=== PATIENT | female | born 1975 | race Hispanic/Latino ===

== ENCOUNTER 2018-04-25 13:34 | Outpatient (CLI) | payer OTHER ==
--- NOTE | 2018-04-25 15:59 | MRI ---
MRI BRAIN WITHOUT CONTRAST: HISTORY: Right-sided paresthesias and numbness. Concern for stroke. FINDINGS: No restricted diffusion is seen. No evidence of infarct, hemorrhage, midline shift, or abnormal extr aaxial fluid collections is seen. The ventricular size is normal and the basilar cisterns patent. T here is mild mucosal disease in the paranasal sinuses. No tonsillar herniation is seen. A partially empty sella is present. IMPRESSION: No evidence of acute intracranial process. POS: [facility]
== END 2018-04-25 13:35 | disposition home or self-care (01) ==
LOC: SCSMRI 13:34
PROVIDERS: ATTEND Neurological Surgery
DX: R20.2 Paresthesia of skin (principal); R20.0 Anesthesia of skin
CPT/HCPCS: 70551

== ENCOUNTER 2018-05-27 09:41 | Outpatient (CLI) | payer OTHER ==
--- NOTE | 2018-05-27 11:15 | RAD ---
TWO VIEWS LUMBOSACRAL SPINE: Comparison: None. History: Back and right leg pain after back surgery in February 2018. FINDINGS: Two views of the lumbosacral spine shows normal height and alignment of the vertebral bodies and inte rvertebral discs without fracture or subluxation. Small osteophytes are seen throughout the lumbar sp ine. IMPRESSION: Mild degenerative changes of the lumbar spine without acute osseous abnormality. POS: [facility]
--- NOTE | 2018-05-27 11:22 | RAD ---
THREE VIEWS CERVICAL SPINE: Comparison: 04-22-18 History: Neck pain since anterior fusion in February 2018. FINDINGS: Three views of the cervical spine shows the patient to be status post anterior fusion of C5 and C6 wi th a plate and screw, and disc spacer within good position within the disc space. No prevertebral sof t tissue swelling is seen. Vertebral bodies demonstrate normal alignment without subluxation. IMPRESSION: Post-surgical changes of the cervical spine without evidence of complication. POS: [facility]
== END 2018-05-27 09:42 | disposition home or self-care (01) ==
LOC: SCSRAD 09:41
PROVIDERS: ATTEND Neurological Surgery
DX: M50.222 Other cervical disc displacement at C5-C6 level (principal); M47.816 Spondylosis without myelopathy or radiculopathy, lumbar region; Z98.1 Arthrodesis status
CPT/HCPCS: 72040; 72100

== ENCOUNTER 2018-09-15 12:24 | Outpatient (CLI) | payer OTHER ==
--- NOTE | 2018-09-15 16:16 | MRI ---
NONCONTRAST MRI LUMBAR SPINE: Date: 09/15/18 HISTORY: Back pain and right leg pain post back surgery in February 2018. COMPARISON: None available. FINDINGS: This examination was performed without intravenous administration of contrast. The conus medullaris is normal in appearance and terminates at the level of the L1 vertebral body. There is a subcentimeter increased T1 and T2-weighted signal intensity focus within the L2 vertebral body, most likely reflective of a small hemangioma. Normal signal intensity is otherwise demonstrated throughout the bone marrow. L1-2 Level: There is no disc bulge or disc herniation. Central spinal canal and neural foramina are patent. L2-3 Level: There is no disc bulge or disc herniation. Central spinal canal and neural foramina are patent. L3-4 Level: There is no significant loss of intervertebral disc height. There are prominent facet hy pertrophic changes bilaterally. There is evidence of a right laminotomy defect present with heterogen eous signal intensity seen within the region of the defect and just medial to the right-sided facet j oint. Facet hypertrophic changes, as well as heterogeneous area of signal intensity results in modera te to severe narrowing of the central spinal canal, with a greater degree of narrowing in the right s ubarticular zone, which probably affects the traversing right L4 nerve root. The neural foramina are patent at this level. The area of heterogeneity in the region of the right laminectomy defect and ext ending into the central canal may be related to facet hypertrophic changes, as well as associated pos toperative scarring. However, area of heterogeneity could potentially be related to a complex synovia l cyst which results in mass effect and narrowing of the central canal. This is difficult to further delineate without intravenous contrast. L4-5 Level: There is a mild central and left paracentral disc bulge with associated annular tear in the left posterolateral margin of the intervertebral disc. Findings result in slight effacement of th e ventral aspect of the thecal sac. There is only minimal encroachment on the left neural foramen. Th e right neural foramen is patent. L5-S1 Level: There is loss of intervertebral disc height. There is a mild broad based disc osteophyt e complex with central disc protrusion. This does encroach on the traversing bilateral S1 nerve roots and likely results in slight mass effect on the traversing bilateral S1 nerve roots. There is no sig nificant narrowing of the central spinal canal. The neural foramina are patent at this level. Retroperitoneal structures demonstrate a normal MRI appearance. IMPRESSION: 1. Postoperative and degenerative changes at the L3-4 level. There is a right laminotomy defect with heterogeneous signal intensity seen just medial to the right-sided facet joint. This area of heterog eneity may be related to a combination of facet hypertrophic changes and associated scar tissue, but complex synovial cyst in this region is a possibility. There is moderate to severe narrowing of the c entral spinal canal with greater degree of narrowing in the subarticular zone on the right at this le giuseppe, which likely affects the traversing right L4 nerve root. A follow-up MRI of the lumbar spine wit h IV contrast is suggested for further evaluation. 2. Disc degenerative changes at the L5-S1 level with disc bulge and central disc protrusion with fac et hypertrophic changes. There is slight mass effect on each traversing S1 nerve root. The neural for niharika are patent at this level. POS: [facility]
--- NOTE | 2018-09-15 16:29 | MRI ---
MRI CERVICAL SPINE WITHOUT CONTRAST: Date: 09/15/18 INDICATION: History of neck pain status post ACDF in February 2018. COMPARISON: Prior MRI of the cervical spine dated 01/14/17. FINDINGS: There has been interval ACDF of C5-C6 from the comparison examination. There is a stable partially empty sella. The visualized posterior fossa is unremarkable appearing. Bone marrow signal intensity appears within normal limits. At C2-C3, there is no appreciable central canal or neural foraminal narrowing. There is mild facet porfirio int degenerative change on the left. At C3-4, there is no appreciable central canal or neural foraminal narrowing. There is mild facet ryan nt degenerative change bilaterally. At C4-5, there is moderate bilateral facet joint degenerative change. There is a small central disc p rotrusion but no appreciable central canal or neural foraminal narrowing. At C5-6, there is mild residual broad based bulge causing mild ventral effacement of the subarachnoid space without definite cord compression. This is improved from the prior examination where there is a broad based disc bulge at C5-6 mildly effacing the ventral spinal cord. At C6-7, there is a broad based bulge causing mild effacement of the ventral subarachnoid space witho ut definite cord compression. At C7-T1, there is no appreciable central canal or neural foraminal narrowing. IMPRESSION: 1. Interval ACDF at C5-6 with improvement of the central canal. There is some mild residual broad ba sed bulge at C5-6 causing mild ventral effacement of the subarachnoid space without definite cord com pression. 2. Mild broad based bulge at C6-7 causes mild ventral effacement of the subarachnoid space without d efinite cord compression. This is slightly more prominent than seen on the comparison of 01/14/17. 3. Partially empty sella. POS: [facility]
== END 2018-09-15 12:25 | disposition home or self-care (01) ==
LOC: SCSMRI 12:24
PROVIDERS: ATTEND Neurological Surgery
DX: M50.222 Other cervical disc displacement at C5-C6 level (principal); M51.26 Other intervertebral disc displacement, lumbar region; M50.923 Unspecified cervical disc disorder at C6-C7 level; M47.816 Spondylosis without myelopathy or radiculopathy, lumbar region; M51.37 Other intervertebral disc degeneration, lumbosacral region; M51.27 Other intervertebral disc displacement, lumbosacral region; M51.87 Other intervertebral disc disorders, lumbosacral region; Z98.1 Arthrodesis status
CPT/HCPCS: 72141; 72148